=== PATIENT | male | born 1995 | race African-American/Black ===

== ENCOUNTER 2021-03-04 20:44 | Emergency (ER) | payer SELFPAY ==
[~2021-03-04 20:44] MED LIST: Rocuronium Bromide 10 MG/ML (10ML VIAL) ONE
[2021-03-04] MEDS ORDERED: EPINEPHrine 1 MG/10 ML Abboject SYRINGE ONE ×2 (20:47→21:14)
[2021-03-04] MEDS ORDERED: Calcium Chloride 1 GM/10 ML Abboject SYRINGE ONE (20:47)
[2021-03-04] MEDS ORDERED: Sodium Bicarb 50 MEQ/50 ML Abboject 8.4% SYRINGE ONE (20:47)
== END 2021-03-04 21:18 | disposition expired ==
LOC: ERS 20:44
DX: S21.349A Puncture wound with foreign body of unspecified front wall of thorax with penetration into thoracic cavity, initial encounter (principal); S26.90XA Unspecified injury of heart, unspecified with or without hemopericardium, initial encounter; S71.132A Puncture wound without foreign body, left thigh, initial encounter; W34.00XA Accidental discharge from unspecified firearms or gun, initial encounter
CPT/HCPCS: 31500; 36430; 36556; 71045; 72170; 86850; 86900; 86901; 92950; 96374; 96375; J0171; P9016